=== PATIENT | female | born 1945 | race Caucasian/White ===

== ENCOUNTER 2017-03-02 10:52 | Outpatient (CLI) | payer MEDICARE ==
[2017-03-02 12:06] LABS: ALT (SGPT) 23 U/L (8-55); AST (SGOT) 26 U/L (5-34); Alkaline Phosphatase 47 U/L (40-150); Anion Gap 16 mmol/L (10-20); BUN (Urea Nitrogen) 16 mg/dL (9.8-20.1); Bilirubin, Total 0.5 mg/dL (0.2-1.2); Calc. Creatinine Clearance 0 mL/min (70-130); Carbon Dioxide 24 mmol/L (23-31); Cardiac Risk 3.2 (Less than 4.5); Chloride 110 mmol/L (98-107); Cholesterol 178 mg/dl (< 200 Desired); Estimated GFR-MDRD 87; Globulin 2.6 g/dL (2.4-3.5); Glucose 102 mg/dL (83-110); HDL Cholesterol 56 mg/dL (>60 Neg Risk); LDL Cholesterol, Calculated 95 mg/dL; Potassium 4.3 mmol/L (3.5-5.1); Protein, Total 6.6 g/dL (6.0-8.3); Sodium 146 mmol/L (136-145); Triglycerides 134 mg/dL (Less than 150)
[2017-03-02 12:42] LABS: #Basophils 0.1 thou/uL (0.0-0.2); #Eosinphils 0.2 thou/uL (0.0-0.7); #Lymphocytes 1.7 thou/uL (1.20-3.40); #Monocytes 0.5 thou/uL (0.11-0.59); %Basophils 1.7 % (0.0-1.0); %Eosinophils 4.2 % (0.0-10.0); %Lymphocytes 38.3 % (21.0-51.0); %Monocytes 11.3 % (0.0-10.0); %Neutrophils 44.4 % (42.0-75.0); Hemoglobin 14.7 g/dL (12.0-16.0); Mean Corpuscular HGB CONC 33.4 g/dL (32.0-36.0); Mean Corpuscular Volume 92.6 fl (81.0-99.0); Mean Platelet Volume 8.3 fL (7.4-10.4); Platelet Count 223 thou/uL (130-400); RBC Distribution Width 11.7 % (11.5-14.5); Red Blood Cell (RBC) Count 4.75 mill/uL (4.20-5.40); White Blood Cell (WBC) Count 4.4 thou/uL (4.8-10.8)
== END 2017-03-02 10:53 ==
LOC: HPCALD 10:52
PROVIDERS: ATTEND Family Medicine
DX: E78.5 Hyperlipidemia, unspecified (principal); I10 Essential (primary) hypertension
CPT/HCPCS: 36415; 80053; 80061; 84443; 85025

== ENCOUNTER 2018-03-23 08:42 | Outpatient (CLI) | payer MEDICARE ==
--- NOTE | 2018-03-23 19:58 | CT ---
CT ABDOMEN AND PELVIS WITH CONTRAST 03/23/[address] of the abdomen and pelvis was performed for evaluation of the epigastric pain. Axial slices were acquired, after giving oral and IV contrast, then coronal and sagittal reconstructions were don e lateral. The lung bases are clear. A small hiatal hernia was noted. The liver, spleen, pancreas, adrenal gland s, kidneys, and abdominal aorta showed no acute changes. Minor calcification is seen in the aorta. There is no distention of bowel to suggest obstruction. There is no thickening of the gastric wall. T he patient does have diverticulosis. There were no convincing findings of diverticulitis, though I wo uld note that the descending colon in general seems to have mildly thickened fields as does the sigmoi d. This may be more of a chronic finding than an acute one. No free air or free fluid was seen. CT of the pelvis showed no pelvic masses, fluid collections, or inflammatory changes. The lumbar spin e shows mild degenerative change. There is probably a left paracentral to lateral bulge of the L4-L5 disc. There is mild facet and ligamentous hypertrophy at this level. IMPRESSION: 1. Small hiatal hernia. 2. No acute abdominal findings. 3. Diverticulosis without findings of focal diverticulitis. 4. Some mild diffuse thickening of the left colon through sigmoid, more likely chronic than acut e. Prior colitis is a possibility. 5. Degenerative and mildly stenotic changes at L4-L5. See above. POS: HOME
== END 2018-03-23 08:43 | disposition home or self-care (01) ==
LOC: BURCT 08:42
PROVIDERS: ATTEND Family Medicine
DX: R10.13 Epigastric pain (principal); K44.9 Diaphragmatic hernia without obstruction or gangrene; K57.90 Diverticulosis of intestine, part unspecified, without perforation or abscess without bleeding; K63.89 Other specified diseases of intestine; M47.896 Other spondylosis, lumbar region; M48.061 Spinal stenosis, lumbar region without neurogenic claudication
CPT/HCPCS: 74177

== ENCOUNTER 2018-11-10 14:10 | Outpatient (CLI) | payer MEDICARE ==
--- NOTE | 2018-11-10 17:59 | RAD ---
LEFT KNEE FOUR VIEWS: 11/10/2018 FINDINGS: No fracture, dislocation, or large joint effusion is seen. There is some minor bony spurring in the patellofemoral joint. If there is medial joint space narrowing, it is very slight. The articular shahid rfaces are smooth. IMPRESSION: No definite acute findings. POS: HOME
== END 2018-11-10 14:11 | disposition home or self-care (01) ==
LOC: BURRAD 14:10
PROVIDERS: ATTEND Family Medicine
DX: M25.562 Pain in left knee (principal)

== ENCOUNTER 2019-12-07 08:46 | Emergency (ER) | payer MEDICARE ==
[2019-12-07] MEDS ORDERED: Ibuprofen 200 MG TAB ONE (09:08)
[2019-12-07] MEDS ORDERED: Cyclobenzaprine 10 MG TAB ONE (09:08)
--- NOTE | 2019-12-07 09:46 | CT ---
CT Lumbar Spine WO Con History: Injury. 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 The aortic contour is nonaneurysmal. No retroperitoneal periaortic adenopathy. No hydroureteronephros is. Posterior paraspinal soft tissues are unremarkable. There is no acute fracture of the lumbar spine. The spinous processes are intact. The transverse proc esses are intact. No lumbosacral transitional vertebra. Levels are as follows: L1/L2: Normal disc height. No neural foraminal or spinal canal narrowing. L2/L3: Mild degenerative disc space height loss. Small disc bulge. No neural foraminal or spinal deirdre l narrowing. L3/L4: Mild degenerative disc space height loss. Mild hypertrophic facet arthrosis. Mild bilateral ne ural foraminal narrowing. L4/L5: High-grade facet arthropathy on the right and moderate on the left. 2 mm anterolisthesis. Post erior displacement disc material as an adaptation to subluxation. There is moderate bilateral neural foraminal narrowing with abutment of both exiting and traversing nerve roots. Mild ligament hy pertrophy. L5/S1: Moderate degenerative disc space height loss. Circumferential disc osteophyte complex. There i s a moderate bilateral neural foraminal narrowing with nerve root abutment. Subtle lucencies of both the left L1 and L2 transverse processes likely artifactual in nature not fra cture. Impression: Spondylosis as described without acute fracture of the lumbar spine.
== END 2019-12-07 10:10 | disposition home or self-care (01) ==
LOC: BURERS 08:46
DX: S39.012A Strain of muscle, fascia and tendon of lower back, initial encounter (principal); I10 Essential (primary) hypertension; E78.5 Hyperlipidemia, unspecified; Z79.899 Other long term (current) drug therapy; Z79.82 Long term (current) use of aspirin; W18.30XA Fall on same level, unspecified, initial encounter
CPT/HCPCS: 72131